=== PATIENT | female | born 1990 | race Caucasian/White ===

== ENCOUNTER 2023-05-31 16:54 | Outpatient (CLI) | payer MEDICAID, SELFPAY | END 2023-05-31 16:55 | disposition home or self-care (01) | PROVIDERS: Visit Provider Physician Assistant | DX: O09.292 Supervision of pregnancy with other poor reproductive or obstetric history, second trimester (principal) | CPT/HCPCS: 82565; 82570; 84156; 84450; 84460; 84520 ==

== ENCOUNTER 2023-06-06 19:28 | Outpatient (CLI) | payer MEDICAID, SELFPAY | END 2023-06-06 19:29 | disposition home or self-care (01) | LOC: NFLDREF 06-27 15:01 | PROVIDERS: Visit Provider Physician Assistant | DX: O09.32 Supervision of pregnancy with insufficient antenatal care, second trimester (principal) | CPT/HCPCS: 82570; 84156 ==

== ENCOUNTER 2023-06-16 05:20 | Outpatient (CLI) | payer OTHER, SELFPAY ==
--- NOTE | 2023-06-16 06:07 | US_ITS ---
Patient: GEORGE HOLCOMB Facility:?[facility] Patient ID:?[id number] Site Patient ID:?[id number]. Site :?[id number] Study:?US-OB Pelvis BPP-06/16/2023 7:08:02 AM Ordering Physician:?MARTINA SHEN Final Report: Indication: Cramping Technique: Limited sonography was performed as a biophysical profile examination. The study is limited to only that which is discussed below. Comparison: None Findings: The cervix is visualized and measures 3.8 centimeters. position is breech The single deepest pocket is 7.5 centimeter The placenta is anterior. heart rate is 131 beats per minute. The biophysical profile score is 8/8 Impression: The biophysical profile score is 8/8. Current position is breech. Other information as discussed above. Dictated by Kyle Sarabia MD @ 06/16/2023 7:14:35 AM Signed by:?Kyle Sarabia MD @06/16/2023 7:14:35 AM (Electronic Signature)
[2023-06-16 06:29] VITALS: PULSE 99; O2SAT 96
[2023-06-16 06:29] LABS: Appearance Urine Clear (Clear); Bilirubin Urine Negative (Negative); Blood Urine Negative (Negative); Color Urine Yellow (Yellow); Glucose Urine Negative (Negative); Ketones Urine Negative (Negative); Leukocyte Esterase Urine Negative (Negative); Nitrite Urine Negative (Negative); Protein Urine Negative (Negative); Specific Gravity Urine 1.015 (1.000-1.030); Urobilinogen Urine 0.2 (0.2-1.0); pH Urine 7.5 (5.0-8.5)
[2023-06-16 06:30] VITALS: BP 112/65; PULSE 98; RESP 18; TEMP 37.2
[2023-06-16 06:52] LABS: Clue Cells <20% Clue Cells Seen (None Seen); Trichomonas No Trichomonas Seen (None Seen); Yeast No Yeast Seen (None Seen)
[2023-06-16 07:39] VITALS: BP 110/70; PULSE 101; PULSE 89; RESP 16; TEMP 37.1; O2SAT 97
[2023-06-16 07:55] LABS: Chlamydia DNA Amplified* NOT DETECTED (No Detected); GC DNA Amplified* NOT DETECTED (No Detected)
--- NOTE | 2023-06-16 08:05 | W.PM.OBO ---
OB Outpatient HPI History of Present Illness Time Seen by Provider: 07:15 Date Seen: 06/16/23 History of Present Illness: 33 year old at 25 1/7 weeks gestation by LMP, PIOTR 09/28/23 , presents with pelvic cramping, questionable vaginal or rectal bleeding and passage of tissue after bowel movements. Patient states that she had been doing well until last night, she had some constipation and was able to have a bowel movement, followed by 2 other looser stools. After the third bowel movement she also noted blood and some tissue in the toilet. After this she remained with menstrual like cramps. After her last bowel movement which was around 0330 she has not had any new bleeding. No dysuria, urgency or frequency. No fever, no chills, no one else sick at home. Baby moving naturally: Yes Bleeding: Yes Contractions: No Leaking fluid: No Discharge: Yes Heartburn: No Back pain: No Meds Home Medications and Allergies Home Medications Medication Instructions Recorded Confirmed Type aspirin 81 mg chewable tablet 81 mg PO QDAY 05/31/23 06/16/23 History bupropion HCl 150 mg 24 hr tablet, 150 mg PO QAM 05/31/23 06/16/23 History extended release docosahexaenoic acid 200 mg 200 mg PO DAILY 05/31/23 06/16/23 History capsule ( DHA) venlafaxine 37.5 mg 37.5 mg PO QDAY 05/31/23 06/16/23 History capsule,extended release 24 hr Allergies Allergy/AdvReac Type Severity Reaction Status Date / Time No Known Drug Allergies Allergy Verified 06/16/23 06:32 [facility] Medical History (Updated 06/16/23 @ 08:16 by Adriana Mason MD) History of asthma ?Z87.09 - Personal history of other diseases of the respiratory system (ICD-10) Surgical History (Updated 05/31/23 @ 13:53 by Tasha Garcia PA-C) History of section, low transverse ?Z98.891 - History of uterine scar from previous surgery (ICD-10) History of cholecystectomy ?Z90.49 - Acquired absence of other specified parts of digestive tract (ICD-10) History of classical section ?Z98.891 - History of uterine scar from previous surgery (ICD-10) Family History (Updated 05/31/23 @ 13:54 by Tasha Garcia PA-C) Father Coronary artery disease Diabetes Social History (Updated 06/02/23 @ 11:03 by Tasha Garcia PA-C) Narrative: SOCIAL HISTORY: 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 Marital status: . Anglican/cultural needs: no. Chemical or radiation exposure: no. Pre- tobacco use: no. Pre- alcohol use: 1-3 per week. Current tobacco use: no. Current alcohol use: no. Recreational drug use: no. Dietary restrictions: no. Blood transfusion acceptable in an emergency: yes. PSYCHOSOCIAL HISTORY: History of depression or currently depressed: yes. Current or past physical, emotional, or sexual mistreatment: no. Problems that will make it hard to make it to appointments: no. What is your current living situation?: I presently have a place to live Problems where you live: no known problems In the past 12 months, utilities in danger of being shut off: no In past 12 months, lack of transportation kept you from medical appts, meetings, work, or getting things needed for daily living: no In the past 12 mos, have been you worried that your food would run out before you had money to buy more?: never true In the past 12 mos, the food you bought just didn't last and you didn't have money to buy more?: never true Smoking Status: Former smoker How often does anyone, including family, friends and others, physically hurt you: never How often does anyone, including family, friends and others, insult or talk down to you: never How often does anyone, including family, friends and others, threaten you with harm: never How often does anyone, including family, friends and others, scream or curse at you: never Little interest or pleasure in doing things: more than half the days Feeling down, depressed, or hopeless: several days History History 3 Elective abortions 0 Para 2 Spontaneous abortions 0 Hx # Term Pregnancies 1 Ectopic pregnancies 0 Hx # Pregnancies 1 Multiple births 0 Number of Living Children 2 Past Pregnancies Del. Date GA/Weeks Outcome Route wt Inf Gender Labor Lgth Anesthesia Location Provider Compli 08/22/15 30 live - low transverse 992.233 g Female spinal [facility] preeclampsia other 02/09/17 37 live - full term low transverse 3.147 kg Female spinal [place] [facility] - H&P: Exam Physical Exam Vital signs: Temp Pulse Resp BP Pulse Ox 98.9 F 89 18 110/70 97 06/16/23 06:30 06/16/23 07:39 06/16/23 06:30 06/16/23 07:39 06/16/23 07:39 Narrative: NST: Tocometer placed at uterine fundus, no uterine contractions, no uterine contractions palpated. Otherwise appropriate for gestational age. BPP: 8/8, cervix closed and measured 3.8cm. Sterile speculum exam: Cervix looks thick and closed, no gross lesions or abnormal discharge, no pooling, no Valsalva. No evidence of tissue like material vaginally, no evidence of old blood. Rectal exam: evidence of internal hemorrhoids, no evidence of blood or tissue in glove. Wet prep: less than 20% of clue cells. UA negative for infection. Labs Labs Laboratory Tests 06/16/23 Range/Units 05:56 Urine Color Yellow (Yellow) Urine Appearance Clear (Clear) Urine pH 7.5 (5.0-8.5) Ur Specific [place] 1.015 (1.000-1.030) Urine Protein Negative (Negative) Urine Glucose (UA) Negative (Negative) Urine Ketones Negative (Negative) Urine Blood Negative (Negative) Urine Nitrite Negative (Negative) Urine Bilirubin Negative (Negative) Urine Urobilinogen 0.2 (0.2-1.0) Ur Leukocyte Esterase Negative (Negative) Vaginal Trichomonas No Trichomonas Seen (None Seen) Vaginal Yeast No Yeast Seen (None Seen) Vaginal Clue Cells <20% Clue Cells Seen A (None Seen) C.trachomatis Ampl DNA NOT DETECTED (No Detected) N.gonorrhoeae Ampl DNA NOT DETECTED (No Detected) Assessment and Plan Assessment and plan (1) Bacterial vaginosis: Status: Acute (2) Internal hemorrhoids: Status: Acute Plan No evidence of labor, abruption at this moment. Due to clinical history, physical exam findings bleeding and tissue like discharge most likely from internal hemorrhoids and bowel movements. Wet prep showing clue cells and due to symptomatology I would treat with course of antibiotic. This is ordered today. Patient encouraged to contact clinic again if anything significantly changes, even if she was evaluated today. Patient and in agreement with plan.
--- NOTE | 2023-06-16 08:13 | PC.OBNST ---
NST Note NST Note Start: 06/16/23 05:40 Freq: ONCE Status: Active Protocol: Document 06/16/23 07:55 [facility] (Rec: 06/16/23 08:12 [facility] [id number]) NST Note 3 Para (# of births) 2 EDC 09/28/23 Gestational Age In Weeks & Days 25 Weeks & 1 Days High Risk Factors History of Labor/ Delivery Patient Presented with Complaint(s) of Contractions/cramping,Other Other Complaints Pt had loose stools x3 during the night and passed some bloody tissue in the toilet with the last stool. She was experiencing mild cramping which she verbalized felt like period cramps. Reactive No Appropriate for Gestational Age Yes GONZALES Banks, GONZALES Date 06/16/23 Reactive No Appropriate for Gestational Age Yes GONZALES De Leon RN Date 06/16/23 OB NST charge Yes Complete NST Note via Write Note Yes The provider's electronic signature indicates the NST is reactive/appropriate for gestational age. *Note to provider: If an addendum is required, open the patient's chart and click on the note under the Nurse/Allied Health tab.
== END 2023-06-16 07:58 | disposition home or self-care (01) ==
LOC: OB OUT 05:21 → OB 05:21
PROVIDERS: Visit Provider Obstetrics & Gynecology
DX: O47.02 False labor before 37 completed weeks of gestation, second trimester (principal); Z3A.25 25 weeks gestation of pregnancy
CPT/HCPCS: 59025; 76819; 81003; 87210; 87491; 87591; G0463

== ENCOUNTER 2023-07-14 14:28 | Outpatient (CLI) | payer OTHER, SELFPAY | END 2023-07-14 14:29 | disposition home or self-care (01) | LOC: NFLDREF 08-01 09:01 | PROVIDERS: Visit Provider Obstetrics & Gynecology | DX: O09.299 Supervision of pregnancy with other poor reproductive or obstetric history, unspecified trimester (principal) | CPT/HCPCS: 82565; 82570; 84156; 84450; 84460; 84520; 84550; 86592; 87491; 87591 ==

== ENCOUNTER 2023-07-25 11:43 | Emergency (ER) | payer OTHER, SELFPAY ==
[2023-07-25] VITALS (8 sets, daily range): BP systolic 116–128; BP diastolic 76–81; PULSE 99–114; RESP 18; TEMP 36.9; O2SAT 96–100; BMI 42.4
[2023-07-25 12:41] LABS: Lactate* 1.3 mmol/L (0.5-1.9)
[2023-07-25 12:48] LABS: Basophils Absolute Auto 0.02 K/uL (0.00-0.30); Basophils Percent Auto 0.2 % (0.0-3.0); Eosinophils Absolute Auto 0.12 K/uL (0.00-0.50); Eosinophils Percent Auto 1.3 % (0.0-7.0); Hemoglobin* 11.7 gm/dL (12.0-16.0); Immature Granulocytes Pct Auto 1.1 %; Lymphocytes Percent Auto 16.6 % (20-44); Mean Corpuscular HGB Conc 33 gm/dL (32-36); Mean Corpuscular Hemoglobin 31 pg (26-34); Mean Corpuscular Volume 92 fL (80-100); Monocytes Percent Auto 7.9 % (0.0-11.0); Neutrophils Percent Auto 72.9 % (42.0-72.0); Platelet Count* 274 K/uL (140-440); RDW Coefficient of Variation % 12.9 % (11.5-15.5); Red Blood Count 3.82 m/uL (4.00-5.20); White Blood Count* 8.98 K/uL (4.50-11.00)
[2023-07-25] MEDS: 0.9 % SODIUM CHLORIDE 1000 ml 1,000 ML IV (12:50)
[2023-07-25 12:52] LABS: Slide Review Reflex No
[2023-07-25 13:02] LABS: Chloride* 107 mmol/L (96-114); Potassium* 3.8 mmol/L (3.6-5.1); Sodium* 133 mmol/L (135-149)
[2023-07-25 13:03] LABS: Albumin* 3.6 g/dL (3.3-5.0)
[2023-07-25 13:05] LABS: Anion Gap 6 mEq/L (7-15); Blood Urea Nitrogen* 11 mg/dL (5-24); Carbon Dioxide* 20 mmol/L (20-32); Creatinine* 0.4 mg/dL (0.5-1.5); Est. Creatinine Clearance* 174.36; Estimated Glomerular Filt Rate 135 ml/min
[2023-07-25 13:06] LABS: Alanine Aminotransferase* 21 U/L (4-35); Alkaline Phosphatase* 81 U/L (40-150); Aspartate Amino Transferase* 24 U/L (12-35); Bilirubin Direct* 0.4 mg/dL (0.0-0.5); Bilirubin Total* 0.6 mg/dL (0.1-1.5); Calcium* 8.7 mg/dL (8.4-10.6); Glucose* 102 mg/dL (60-115); Total Protein* 6.6 g/dL (6.0-8.3)
[2023-07-25 13:18] LABS: Troponin I* < 0.01 ng/mL (0.01-0.04)
--- NOTE | 2023-07-25 13:47 | ED_ITS ---
HPI - General Adult General Chief complaint: Dizziness/Vertigo Stated complaint: 30 weeks --dizziness, elevated heartrate Time Seen by Provider: 07/25/23 12:22 Source: patient Mode of arrival: ambulatory Limitations: no limitations History of Present Illness HPI narrative: 33-year-old female at 30 weeks gestation presents today with not feeling well. She states that her last couple days she has had episodes of feeling very hot. She states that she feels extremely hot for about an hour and can not seem to cool down. She then feels lightheaded when this occurs. Sometimes she feels a slight pressure in her chest and shortness of breath while this is occurring. She has also been getting alerts on her phone that her pulse is too fast. After the episode resolved, she feels better and goes back to normal. She does state that she does become diaphoretic during these episodes, sweating for about half an hour while the episode lasts for about 1 hour. She denies any abdominal pain or cramping. No vaginal discharge. No fevers or chills. No vomiting. No recent diarrhea or sick contacts that she is aware of. When patient is not in the middle of this episode of feeling overheated, she does not have chest pain or shortness of breath. Past medical history is significant for history of HELLP syndrome with her 1st , delivery at 30 weeks with severe IUGR, via . Past medical history also significant for depression, anxiety, ADD, obesity. Related Data Home Medications ?Medication ?Instructions ?Recorded ?Confirmed aspirin 81 mg chewable tablet 81 mg PO QDAY 05/31/23 07/25/23 bupropion HCl 150 mg 24 hr tablet, 150 mg PO QAM 05/31/23 07/25/23 extended release docosahexaenoic acid 200 mg 200 mg PO DAILY 05/31/23 07/25/23 capsule ( DHA) venlafaxine 37.5 mg 37.5 mg PO QDAY 05/31/23 07/25/23 capsule,extended release 24 hr Allergies Allergy/AdvReac Type Severity Reaction Status Date / Time No Known Drug Allergies Allergy Verified 07/25/23 11:59 Review of Systems Status of ROS: Reports: 10 or more systems reviewed and unremarkable except as noted in History and below [facility] Medical History History of asthma ?Z87.09 - Personal history of other diseases of the respiratory system (ICD- 10) Surgical History History of section, low transverse ?Z98.891 - History of uterine scar from previous surgery (ICD-10) History of cholecystectomy ?Z90.49 - Acquired absence of other specified parts of digestive tract (ICD- 10) History of classical section ?Z98.891 - History of uterine scar from previous surgery (ICD-10) Family History Father Coronary artery disease Diabetes Social History Narrative: SOCIAL HISTORY: 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 Marital status: . Moravian/cultural needs: no. Chemical or radiation exposure: no. Pre- tobacco use: no. Pre- alcohol use: 1-3 per week. Current tobacco use: no. Current alcohol use: no. Recreational drug use: no. Dietary restrictions: no. Blood transfusion acceptable in an emergency: yes. PSYCHOSOCIAL HISTORY: History of depression or currently depressed: yes. Current or past physical, emotional, or sexual mistreatment: no. Problems that will make it hard to make it to appointments: no. What is your current living situation?: I presently have a place to live Problems where you live: no known problems In the past 12 months, utilities in danger of being shut off: no In past 12 months, lack of transportation kept you from medical appts, meetings, work, or getting things needed for daily living: no In the past 12 mos, have been you worried that your food would run out before you had money to buy more?: never true In the past 12 mos, the food you bought just didn't last and you didn't have money to buy more?: never true Smoking Status: Former smoker Do you use any of these nicotine containing products: None How often do you have a drink containing alcohol: never AUDIT-C Alcohol total score: 0 Non-prescribed substance use: denies use How often does anyone, including family, friends and others, physically hurt you : never How often does anyone, including family, friends and others, insult or talk down to you: never How often does anyone, including family, friends and others, threaten you with harm: never How often does anyone, including family, friends and others, scream or curse at you: never Little interest or pleasure in doing things: more than half the days Feeling down, depressed, or hopeless: more than half the days Exam Narrative: Exam Narrative: Overweight, well-developed patient in no acute distress. Alert and oriented. Answers questions appropriately. Mood and affect are appropriate. Thoughts are goal oriented and rational. No tangential or magical thinking noted. Patient speaks in full sentences without needing to catch her breath. HEENT: Normocephalic atraumatic. Pupils are equally round reactive to light. Extraocular muscles are intact. Conjunctivae are moist without any icterus noted. Moist mucous membranes. Neck is soft. Cardiovascular: Heart is regular rate and rhythm S1 and S2 are present without any murmurs. Lungs: Clear to auscultation bilaterally no wheezes rhonchi or rales are appreciated. Patient takes deep breaths without any discomfort. Abdomen: Gravid, nontender with normal bowel sounds. Extremities: Bilateral lower extremities are without pitting edema. Normal DP and PT pulses. Skin: Well perfused without any obvious rashes. Const: Vital Signs, click to edit/add: Vital Signs - 24 hr 07/25/23 11:51 07/25/23 13:34 07/25/23 13:42 Temperature 98.5 F Pulse Rate 99 106 H Pulse Rate [Pulse Oximeter] 114 H Respiratory Rate 18 Blood Pressure 122/79 Blood Pressure [Ri ght Upper Arm] 116/78 Pulse Oximetry 96 98 99 Oxygen Delivery Me thod Room Air Course Course ED Course: OB nurse did come down to evaluate the patient. IV was established patient received a L of normal saline. EKG, read by me, shows sinus tachycardia with a pulse of 116. T-wave inversions in V1, V2 and V3. CBC was unremarkable. Chemistry shows slightly low sodium otherwise unremarkable. Normal LFTs. Normal troponin. TSH pending. UA did show evidence of mild dehydration. Repeat pulse 99, then 106. Did look through patient's previous vital signs she did have a pulse of 117 06/27 and 104 on 07/13. Did speak to NUNO Sanchez on-call, who recommends a heart monitor. Patient will be discharged from the ER and sent over to the clinic where they have 1 waiting for her. Vital Signs Vital signs: Initial Vital Signs Temperature 98.5 F 07/25/23 11:51 Temperature Source Temporal Artery Scan 07/25/23 11:51 Pulse Rate 114 H 07/25/23 11:51 Respiratory Rate 18 07/25/23 11:51 Blood Pressure 116/78 07/25/23 11:51 Blood Pressure Mean 90 07/25/23 11:51 Blood Pressure Position Sitting 07/25/23 11:51 Pulse Oximetry 96 07/25/23 11:51 Oxygen Delivery Method Room Air 07/25/23 11:51 Vital Signs Temperature 98.5 F 07/25/23 11:51 Pulse Rate 114 H 07/25/23 11:51 Respiratory Rate 18 07/25/23 11:51 Blood Pressure 116/78 07/25/23 11:51 Pulse Oximetry 96 07/25/23 11:51 Oxygen Delivery Method Room Air 07/25/23 11:51 Temperature 98.5 F 07/25/23 11:51 Pulse Rate 106 H 07/25/23 13:42 Respiratory Rate 18 07/25/23 11:51 Blood Pressure 122/79 07/25/23 13:42 Pulse Oximetry 99 07/25/23 13:42 Oxygen Delivery Method Room Air 07/25/23 11:51 Medications Administered Medications: Discontinued Medications Generic Name Dose Route Start Last Admin Trade Name Freq PRN Reason Stop Dose Admin Sodium Chloride 1,000 mls @ 1,000 mls/hr 07/25/23 12:30 07/25/23 12:50 0.9 % Sodium Chloride 1000 Ml IV 07/25/23 13:29 1,000 mls/hr .Q1H ÁNGELA Administration Medical Decision Making MDM Narrative Medical decision making narrative: 33-year-old female with persistent tachycardia, episodes of feeling hot. TSH pending at this time. Patient will be sent over to the staff counsel clinic for a heart monitor. Lab Data Lab results reviewed: Yes I reviewed the patient's lab results Labs: Lab Results 07/25/23 07/25/23 Range/Units 12:33 13:30 WBC 8.98 (4.50-11.00) K/uL RBC 3.82 L (4.00-5.20) m/uL Hgb 11.7 L (12.0-16.0) gm/dL Hct 35.0 (33.0-51.0) % MCV 92 (80-100) fL MCH 31 (26-34) pg MCHC 33 (32-36) gm/dL RDW Coeff of Cinthya 12.9 (11.5-15.5) % Plt Count 274 (140-440) K/uL Neut % (Auto) 72.9 H (42.0-72.0) % Lymph % (Auto) 16.6 L (20-44) % [place] % (Auto) 7.9 (0.0-11.0) % Eos % (Auto) 1.3 (0.0-7.0) % Baso % (Auto) 0.2 (0.0-3.0) % Neut # (Auto) 6.50 (1.7-7.0) K/uL Lymph # (Auto) 1.50 (0.90-2.90) K/uL [place] # (Auto) 0.70 (0.00-0.90) K/UL Eos # (Auto) 0.12 (0.00-0.50) K/uL Baso # (Auto) 0.02 (0.00-0.30) K/uL Abs Immat Gran (auto) 0.10 (0.00-0.30) K/uL Imm/Tot Granulo (auto) 1.1 % Sodium 133 L (135-149) mmol/L Potassium 3.8 (3.6-5.1) mmol/L Chloride 107 (96-114) mmol/L Carbon Dioxide 20 (20-32) mmol/L Anion Gap 6 L (7-15) mEq/L BUN 11 (5-24) mg/dL Creatinine 0.4 L (0.5-1.5) mg/dL Estimated Creat Clear 174.36 Estimated GFR 135 ml/min Glucose 102 (60-115) mg/dL Lactate 1.3 (0.5-1.9) mmol/L Calcium 8.7 (8.4-10.6) mg/dL Total Bilirubin 0.6 (0.1-1.5) mg/dL Direct Bilirubin 0.4 (0.0-0.5) mg/dL AST 24 (12-35) U/L ALT 21 (4-35) U/L Alkaline Phosphatase 81 (40-150) U/L Troponin I < 0.01 L (0.01-0.04) ng/mL Total Protein 6.6 (6.0-8.3) g/dL Albumin 3.6 (3.3-5.0) g/dL Urine Color Dark yellow (Yellow) Urine Appearance Slightly Cloudy A (Clear) Urine pH 6.5 (5.0-8.5) Ur Specific [place] >= 1.030 (1.000-1.030) Urine Protein Negative (Negative) Urine Glucose (UA) Negative (Negative) Urine Ketones 1+ A (Negative) Urine Blood Negative (Negative) Urine Nitrite Negative (Negative) Urine Bilirubin Negative (Negative) Urine Urobilinogen 0.2 (0.2-1.0) Ur Leukocyte Esterase Negative (Negative) Urine RBC 0-2 (0-2) Urine WBC 2-5 (0-5) Ur Squamous Epith Cells Few (None-Few) Urine Bacteria Moderate A (None) POC Troponin I 0.00 L (0.01-0.04) ng/ml ECG Data Attestation: I personally reviewed and interpreted this ECG as follows: Discharge Plan Discharge Clinical Impression: Tachycardia, Dizziness Patient Disposition: Home, Self-Care Condition: Stable Additional Instructions: Increase daily fluid intake. You do need to go over to the staff counsel clinic to have your heart monitor placed, they are waiting for you at this time. Prescriptions: No Action bupropion HCl 150 mg tablet extended release 24 hr 150 mg PO QAM Hold Instructions: pt believes is on hold venlafaxine 37.5 mg capsule,extended release 24hr 37.5 mg PO QDAY aspirin 81 mg tablet,chewable 81 mg PO QDAY DHA 200 mg capsule 200 mg PO DAILY Follow Up/Referrals: Provider,Not a Local [Primary Care Provider] - Stand Alone Forms: MyHealth Info Instructions
[2023-07-25 13:55] LABS: Appearance Urine Slightly Cloudy (Clear); Bilirubin Urine Negative (Negative); Blood Urine Negative (Negative); Color Urine Dark yellow (Yellow); Glucose Urine Negative (Negative); Ketones Urine 1+ (Negative); Leukocyte Esterase Urine Negative (Negative); Nitrite Urine Negative (Negative); Protein Urine Negative (Negative); Specific Gravity Urine >= 1.030 (1.000-1.030); Urobilinogen Urine 0.2 (0.2-1.0); pH Urine 6.5 (5.0-8.5)
[2023-07-25 14:06] LABS: RBC Urine 0-2 (0-2)
[2023-07-25 14:07] LABS: Bacteria Urine Moderate; Squamous Epithelial Cell Urine Few (None-Few)
== END 2023-07-25 14:37 | disposition home or self-care (01) ==
PROVIDERS: Emergency Provider Family Medicine
DX: R42 Dizziness and giddiness (principal); Z3A.30 30 weeks gestation of pregnancy
CPT/HCPCS: 36415; 80048; 80076; 81001; 83605; 84443; 84484; 85025; 87086; 93005; 94761; 99284; J7030

== ENCOUNTER 2023-08-04 07:17 | Outpatient (CLI) | payer OTHER, SELFPAY ==
--- NOTE | 2023-08-04 07:15 | CRLHL7_ITS ---
For Patients: As a result of the Century Cures Act, medical imaging exams and procedure reports are released immediately into your electronic medical record. You may view this report before your referring provider. If you have questions, please contact your health care provider. INDICATION: Uterine scar TECHNIQUE: Real time hauser scale imaging of the fetus was performed. COMPARISON: 06/16/2023 FINDINGS: Sonographic imaging demonstrates a single living intrauterine gestation. Fetus demonstrates a regular cardiac rate of 130 beats per minute. Fetus has a breech position. The placenta lies anteriorly. Amniotic fluid volume appears normal and there is a single deepest pocket of 7.6 cm. The estimated weight is 2650gm which lies at the greater than 97 %. BPD, HC, AC greater than 97th percentile. [place] 39th percentile. The fetus was active and demonstrated normal breathing movements. There was normal flexion and extension of the trunk and extremities. IMPRESSION: Normal biophysical profile score 8/8. Sonographic gestational age 35 weeks 3 days and sonographic due date of 09/05/2023. Sonographic ages 23 days ahead of the clinical age. Estimated weight greater than 97th percentile. BPD/HC/AC greater than 97th percentile. Dictated by Danny Nguyen MD @ 08/05/2023 6:17:59 AM (Electronically Signed)
== END 2023-08-04 07:18 | disposition home or self-care (01) ==
LOC: US 07:18
PROVIDERS: Visit Provider Obstetrics & Gynecology
DX: O09.293 Supervision of pregnancy with other poor reproductive or obstetric history, third trimester (principal); Z98.891 History of uterine scar from previous surgery; Z87.51 Personal history of pre-term labor; Z3A.35 35 weeks gestation of pregnancy
CPT/HCPCS: 76816; 76819

== ENCOUNTER 2023-08-07 13:02 | Outpatient (CLI) | payer OTHER, SELFPAY ==
[2023-08-07] VITALS (12 sets, daily range): BP systolic 115–128; BP diastolic 71–76; PULSE 97–120; RESP 18; TEMP 37; O2SAT 95–98
[2023-08-07 14:01] LABS: Hematocrit 34.3 % (33.0-51.0); Hemoglobin* 11.4 gm/dL (12.0-16.0); Mean Corpuscular HGB Conc 33 gm/dL (32-36); Mean Corpuscular Hemoglobin 31 pg (26-34); Mean Corpuscular Volume 92 fL (80-100); Platelet Count* 235 K/uL (140-440); Red Blood Count 3.73 m/uL (4.00-5.20)
[2023-08-07 14:04] LABS: Creatinine Urine 117.4 mg/dL; Protein Creatinine Ratio Urine 0.04 (0-0.19); Total Protein Urine 5 mg/dL
[2023-08-07 14:05] LABS: Slide Review Reflex No
[2023-08-07 14:16] LABS: Creatinine* 0.4 mg/dL (0.5-1.5); Estimated Glomerular Filt Rate 135 ml/min
[2023-08-07 14:17] LABS: Alanine Aminotransferase* 24 U/L (4-35); Aspartate Amino Transferase* 31 U/L (12-35); Blood Urea Nitrogen* 9 mg/dL (5-24)
--- NOTE | 2023-08-07 14:45 | PC.OBNST ---
NST Note NST Note Start: 08/07/23 13:17 Freq: ONCE Status: Active Protocol: Document 08/07/23 14:43 JOSEPH (Rec: 08/07/23 14:45 JOSEPH [id number]) NST Note 3 Para (# of births) 2 EDC 09/28/23 Gestational Age In Weeks & Days 32 Weeks & 4 Days Patient Presented with Complaint(s) of Headache,Other Other Complaints visual changes Reactive Yes Appropriate for Gestational Age Yes GONZALES Quintanilla RNC Date 08/07/23 Reactive Yes Appropriate for Gestational Age Yes GONZALES Flood RN Date 08/07/23 OB NST charge Yes Complete NST Note via Write Note Yes The provider's electronic signature indicates the NST is reactive/appropriate for gestational age. *Note to provider: If an addendum is required, open the patient's chart and click on the note under the Nurse/Allied Health tab.
--- NOTE | 2023-08-12 15:00 | PC.OBNST ---
NST Note NST Note Start: 08/07/23 13:17 Freq: ONCE Status: Discharge Protocol: Document 08/07/23 14:43 JOSEPH (Rec: 08/07/23 14:45 JOSEPH [id number]) NST Note 3 Para (# of births) 2 EDC 09/28/23 Gestational Age In Weeks & Days 32 Weeks & 4 Days Patient Presented with Complaint(s) of Headache,Other Other Complaints visual changes Reactive Yes Appropriate for Gestational Age Yes GONZALES Quintanilla RNC Date 08/07/23 Reactive Yes Appropriate for Gestational Age Yes GONZALES Flood RN Date 08/07/23 OB NST charge Yes Complete NST Note via Write Note Yes The provider's electronic signature indicates the NST is reactive/appropriate for gestational age. *Note to provider: If an addendum is required, open the patient's chart and click on the note under the Nurse/Allied Health tab.
== END 2023-08-07 14:48 | disposition home or self-care (01) ==
LOC: OB OUT 13:03 → OB 13:04
PROVIDERS: Visit Provider Obstetrics & Gynecology
DX: O26.893 Other specified pregnancy related conditions, third trimester (principal); R51.9 Headache, unspecified; H53.9 Unspecified visual disturbance; Z3A.32 32 weeks gestation of pregnancy
CPT/HCPCS: 36415; 59025; 82565; 82570; 84156; 84450; 84460; 84520; 85027; G0463

== ENCOUNTER 2023-08-15 08:26 | Outpatient (CLI) | payer OTHER, SELFPAY ==
[2023-08-15 08:32] VITALS: PULSE 106; O2SAT 95
[2023-08-15 08:37] VITALS: PULSE 107; O2SAT 97
[2023-08-15 08:42] VITALS: PULSE 102; O2SAT 97
[2023-08-15 08:45] VITALS: RESP 18; TEMP 36.6
[2023-08-15 08:46] VITALS: BP 122/77; PULSE 101
[2023-08-15 09:18] LABS: Appearance Urine Slightly Cloudy (Clear); Bilirubin Urine Negative (Negative); Blood Urine Negative (Negative); Color Urine Yellow (Yellow); Glucose Urine Negative (Negative); Ketones Urine Negative (Negative); Leukocyte Esterase Urine Negative (Negative); Nitrite Urine Negative (Negative); Protein Urine Negative (Negative); Specific Gravity Urine 1.015 (1.000-1.030)
[2023-08-15 09:30] LABS: Bacteria Urine Moderate; RBC Urine 0-2 (0-2); Squamous Epithelial Cell Urine Few (None-Few)
--- NOTE | 2023-08-15 10:47 | PC.OBNST ---
NST Note NST Note Start: 08/15/23 08:36 Freq: ONCE Status: Active Protocol: Document 08/15/23 10:44 [facility]MB (Rec: 08/15/23 10:46 MMB [id number]) NST Note 3 Para (# of births) 2 EDC 09/29/23 Gestational Age In Weeks & Days 33 Weeks & 4 Days Patient Presented with Complaint(s) of Vaginal bleeding,Decreased movement Reactive Yes Appropriate for Gestational Age Yes GONZALES Leonard RN Date 08/15/23 Reactive Yes Appropriate for Gestational Age Yes GONZALES De Leon RN Date 08/15/23 OB NST charge Yes Complete NST Note via Write Note Yes The provider's electronic signature indicates the NST is reactive/appropriate for gestational age. *Note to provider: If an addendum is required, open the patient's chart and click on the note under the Nurse/Allied Health tab.
== END 2023-08-15 10:00 | disposition home or self-care (01) ==
LOC: OB OUT 08:26 → OB 08:27
PROVIDERS: Visit Provider Obstetrics & Gynecology
DX: O46.93 Antepartum hemorrhage, unspecified, third trimester (principal); O36.8130 Decreased fetal movements, third trimester, not applicable or unspecified; Z3A.33 33 weeks gestation of pregnancy
CPT/HCPCS: 59025; 81001; 81003; 87086; G0463

== ENCOUNTER 2023-08-16 08:13 | Outpatient (CLI) | payer OTHER, SELFPAY ==
[2023-08-16 08:29] VITALS: BP 112/81; PULSE 112; RESP 16; TEMP 36.8
[2023-08-16 09:14] LABS: Clue Cells >20% Clue Cells Seen (None Seen); Trichomonas No Trichomonas Seen (None Seen); Yeast No Yeast Seen (None Seen)
--- NOTE | 2023-08-16 09:42 | P.OBLDTN_ITS ---
OB - Triage/Final Diagnosis Visit Information Time Seen by Provider: 08:45 Date Seen: 08/16/23 Date of evaluation: 08/16/23 Narrative: The patient is a 33 year old 3 para 1102 at 33 6/7 weeks gestation by LMP, who presents with vaginal bleeding. She had been evaluated in triage yesterday for similar complaint. When she woke up yesterday and went to the bathroom, she noticed some bright red blood on the toilet tissue with wiping. She was seen in the Center triage, NST was reactive and reassuring, urinalysis was obtained, and the patient was sent home as she had no further bleeding. Twice after that yesterday, she had just a little bit of pink tinge to her discharge with wiping. She also had some pelvic pressure for a couple of hours yesterday. This morning, when she awoke and went to the bathroom, she again noticed some bright red bleeding on the toilet tissue. It happened again when she went to the bathroom just after arriving in triage. She has also noticed a little bit more discharge residue on her underwear the last couple of days, described as white to green. She denies leakage of fluid. She has had no dysuria or urinary urgency. Urine culture is still pending from yesterday. Fetus is active. Evaluation Cervical dilation (cm): 0 Laboratory results: Laboratory Tests 08/16/23 Range/Units Unknown Vaginal Trichomonas No Trichomonas Seen (None Seen) Vaginal Yeast No Yeast Seen (None Seen) Vaginal Clue Cells >20% Clue Cells Seen A (None Seen) Vital signs: Vital Signs - 24 hr 08/16/23 08:29 08/16/23 08:29 Temperature 98.3 F Pulse Rate 112 H Respiratory Rate 16 Blood Pressure 112/81 Fetus (Single) Heart Rate Baseline: 135 Jail Variability: Moderate (6-25) Monitor Accelerations: Present Monitor Decelerations: None Station: -4 Final Diagnosis (1) Bacterial vaginosis in : Status: Acute Problem details: Will treat with metronidazole.
--- NOTE | 2023-08-16 09:42 | PC.OBNST ---
NST Note NST Note Start: 08/16/23 08:15 Freq: ONCE Status: Active Protocol: Document 08/16/23 09:40 MICHELLE (Rec: 08/16/23 09:42 MICHELLE [id number]) NST Note 3 Para (# of births) 2 EDC 09/28/23 Gestational Age In Weeks & Days 33 Weeks & 6 Days Patient Presented with Complaint(s) of Vaginal bleeding Reactive Yes Appropriate for Gestational Age Yes RN Laurie Barr RN Date 08/16/23 Reactive Yes Appropriate for Gestational Age Yes GONZALES De Leon RNC Date 08/16/23 OB NST charge Yes Complete NST Note via Write Note Yes The provider's electronic signature indicates the NST is reactive/appropriate for gestational age. *Note to provider: If an addendum is required, open the patient's chart and click on the note under the Nurse/Allied Health tab.
== END 2023-08-16 09:58 | disposition home or self-care (01) ==
LOC: OB OUT 08:13 → OB 08:14
PROVIDERS: Visit Provider Obstetrics & Gynecology
DX: O46.93 Antepartum hemorrhage, unspecified, third trimester (principal); Z3A.33 33 weeks gestation of pregnancy
CPT/HCPCS: 59025; 87210; G0463

== ENCOUNTER 2023-08-18 13:45 | Outpatient (CLI) | payer OTHER, SELFPAY ==
--- NOTE | 2023-08-18 14:00 | CRLHL7_ITS ---
For Patients: As a result of the Century Cures Act, medical imaging exams and procedure reports are released immediately into your electronic medical record. You may view this report before your referring provider. If you have questions, please contact your health care provider. INDICATION: hx of uterine scar from previous surgery, PTB COMPARISON: 08/04/2023 TECHNIQUE: Real time hauser scale imaging of the fetus was performed. Without non-stress testing. FINDINGS: Sonographic imaging demonstrates a single living intrauterine gestation. Fetus demonstrates a regular cardiac rate of 138 beats per minute. Fetus has a vertex position. The amniotic fluid volume appears normal and there is a single deepest pocket measurement of 7.0 cm. The fetus was active and demonstrated normal breathing movements. There was normal flexion and extension of the trunk and extremities. IMPRESSION: Normal biophysical profile score of 8 out of 8. Dictated by Danny Nguyen MD @ 08/20/2023 7:26:59 PM (Electronically Signed)
== END 2023-08-18 13:46 | disposition home or self-care (01) ==
LOC: US 13:45
PROVIDERS: Visit Provider Advanced Practice Midwife
DX: Z98.891 History of uterine scar from previous surgery (principal); Z87.51 Personal history of pre-term labor
CPT/HCPCS: 76819

== ENCOUNTER 2023-09-01 13:53 | Outpatient (CLI) | payer OTHER, SELFPAY ==
--- NOTE | 2023-09-01 14:00 | CRLHL7_ITS ---
For Patients: As a result of the Century Cures Act, medical imaging exams and procedure reports are released immediately into your electronic medical record. You may view this report before your referring provider. If you have questions, please contact your health care provider. INDICATION: History of uterine scar COMPARISON: 08/18/2023 TECHNIQUE: Real time hauser scale imaging of the fetus was performed. Without non-stress testing. FINDINGS: Sonographic imaging demonstrates a single living intrauterine gestation. Fetus demonstrates a regular cardiac rate of 141 beats per minute. Fetus has a vertex position. The amniotic fluid volume single deepest pocket measurement of 10.2 cm. JARAD 27.7 cm. The fetus was active and demonstrated normal breathing movements. There was normal flexion and extension of the trunk and extremities. IMPRESSION: Normal biophysical profile score of 8 out of 8. JARAD 27.7 cm. SDP 10.2 cm. Dictated by Danny Nguyen MD @ 09/02/2023 10:37:40 AM (Electronically Signed)
== END 2023-09-01 13:54 | disposition home or self-care (01) ==
LOC: US 13:54
PROVIDERS: Visit Provider Advanced Practice Midwife
DX: Z98.891 History of uterine scar from previous surgery (principal); Z87.51 Personal history of pre-term labor
CPT/HCPCS: 76819; 87081; 87653

== ENCOUNTER 2023-09-06 05:19 | Inpatient (IN) | payer OTHER, SELFPAY ==
[2023-09-06] VITALS (31 sets, daily range): BP systolic 102–116; BP diastolic 57–76; PULSE 89–114; RESP 16–18; TEMP 36.4–36.9; O2SAT 94–100; BMI 45.0
[2023-09-06] MEDS: LACTATED RINGERS 1000 ML 1,000 ML 1200 ML IV ×2 (05:46→06:37)
[2023-09-06 05:53] LABS: Basophils Absolute Auto 0.02 K/uL (0.00-0.30); Basophils Percent Auto 0.2 % (0.0-3.0); Eosinophils Percent Auto 1.1 % (0.0-7.0); Hematocrit 39.4 % (33.0-51.0); Hemoglobin* 13.1 gm/dL (12.0-16.0); Immature Granulocytes Pct Auto 1.1 %; Lymphocytes Absolute Auto 1.94 K/uL (0.90-2.90); Lymphocytes Percent Auto 21.7 % (20-44); Mean Corpuscular HGB Conc 33 gm/dL (32-36); Mean Corpuscular Hemoglobin 31 pg (26-34); Mean Corpuscular Volume 93 fL (80-100); Monocytes Percent Auto 11.6 % (0.0-11.0); Neutrophils Absolute Auto 5.73 K/uL (1.7-7.0); Neutrophils Percent Auto 64.3 % (42.0-72.0); Platelet Count* 226 K/uL (140-440); RDW Coefficient of Variation % 14.3 % (11.5-15.5); Red Blood Count 4.24 m/uL (4.00-5.20); White Blood Count* 8.93 K/uL (4.50-11.00)
[2023-09-06 05:57] LABS: Slide Review Reflex No
--- NOTE | 2023-09-06 07:16 | P.PCN_ITS ---
Procedure Note Time Seen by Provider: 08:32 Date Seen: 09/06/23 Date of procedure: 09/06/23 Will [facility] bill your pro fee for this procedure?: Yes Procedure: Preoperative diagnosis: 33-year-old 3 para 2001 at 36 and 6/7 weeks admitted for a 1. scheduled repeat low transverse section. 2. Undesired fertility 3. History of classical section Postoperative diagnosis: Same Procedure: Repeat low-transverse section. Bilateral Salpingectomy Anesthesia: Spinal Surgeon: Laura Michelle MD Assistant Account Manager: Kay Dhaliwal MD Quantitative blood loss: 334 mL IVF: 1400 mL UOP: 75 mL Drain(s): Steinberg to gravity Specimen: Right and left fallopian tubes to pathology Findings: A live male was delivered from the direct OA position at 8:01 a.m. Apgars were 8 at 1 min and 9 at 5 min respectively. weight: 8 lb 12 oz. Nuchal cord(s): Yes, 1 loose nuchal cord easily reduced prior to delivery of the shoulders. The placenta was delivered spontaneously and complete at 8:03 a.m. Amniotic fluid: Clear, large amount. Normal uterus, fallopian tubes and ovaries were noted. Other findings: The omentum was adherent to the anterior abdominal wall in the midline that was taken down with bipolar cautery. The bladder was adherent to the anterior lower uterine segment. Procedure: Mony was taken to the OR where spinal anesthetic was found be adequate. A Steinberg catheter was placed. The patient was then placed in the dorsal supine position with a leftward tilt. She was then prepped and draped in a normal sterile manner. A Pfannenstiel skin incision was made and carried through sharply to the underlying layer of fascia. Fascia was incised in the midline and this incision carried laterally with Jaimes scissors. The superior aspect of fascial incision was grasped with Barb clamps, tented up, and the rectus muscles dissected off with a combination of blunt and sharp dissection. The inferior aspect of the fascial incision was grasped with Barb clamps, tented up and again the rectus muscles dissected off with a combination of blunt and sharp dissection. The rectus muscles were in the midline. The peritoneum was entered bluntly. This opening was extended bluntly. An Ben-O self-retaining retractor was placed. A bladder flap was created using Metzenbaum scissors to release adhesions of the bladder flap to the anterior uterine wall and then the bladder flap was created digitally. Uterus was incised in a low transverse manner in the midline. This incision carried laterally with blunt pressure on the inferior and superior aspects of the uterine incision. The amniotic sac was ruptured. The infant's head and body was delivered atraumatically. The was shown to the patient and her support person, then handed to waiting pediatric and nursing staff. The placenta was delivered spontaneously. The uterus was cleared of clots and debris. The uterine incision was re-approximated with the uterus in vivo. The 1st layer using 0-Vicryl in a running, locked manner. The 2nd layer using 0-Monocryl in a running, vertical, imbricating layer. Additional sutures needed for hemostasis: No. Attention was then turned to performing the bilateral salpingectomy. The uterus was exteriorized to visualize fallopian tubes and ovaries.The right fallopian tube was identified, grasped with 2 Mahendra clamps and followed to the fimbriated end of the fallopian tube. The hand-held LigaSure dissecting forceps was used to remove the fallopian tube from the cornua and broad ligament by sequential pedicles. The pedicles were started at the fimbriated end of the tube and extended toward the cornua. The fallopian tube was amputated from the cornual a and sent to pathology. Hemostasis of the pedicles was obtained using bipolar cautery and a DeBakey forceps. The left fallopian tube was then identified, grasped with 2 Mahendra clamps and removed in the same manner as the right fallopian tube. All pedicles were visualized and hemostasis obtained using bipolar cautery with a DeBakey clamp. The uterine incision was reinspected and noted to be hemostatic. The Ben retractor was removed. The peritoneum was not reapproximated. The rectus muscles were not reapproximated. The rectus muscles were then closely inspected to verify hemostasis. Hemostasis was obtained with bipolar cautery. The fascia was then reapproximated using 0-Maxon loop in a running manner. The subcutaneous tissue was then irrigated with saline and hemostasis obtained with bipolar cautery. The subcutaneous tissue was reapproximated using 3-0 plain gut in a running manner. The skin was reapproximated using 4-0 Monocryl in a running subcuticular manner. Silver-containing dressing applied. The patient tolerated this procedure well. Sponge, lap and instrument counts were correct x2 active to the procedure. Patient was taken to the recovery area in stable condition. The patient received 3 g of IV Ancef prior to skin incision.
--- NOTE | 2023-09-06 07:16 | W.PM.H&PU ---
History & Physical Update History & Physical Update H&P Reviewed and patient assessed: No changes noted
[2023-09-06] MEDS: CEFAZOLIN 1 GM inj 3 GM IVP (07:28)
[2023-09-06] MEDS: LACTATED RINGERS 1000 ML 1,000 ML 125 ML IV ×2 (08:02→13:48)
[2023-09-06] MEDS: KETOROLAC 30 MG/ML inj IVP ×3 (08:38→20:14)
--- NOTE | 2023-09-06 09:06 | W.ANESCHARGE ---
Anesthesia Charges Start Date/Time Anesthesia Start Date: 09/06/23 Anesthesia Start Time: 07:19 Stop Date/Time Anesthesia Stop Date: 09/06/23 Anesthesia Stop Time: 09:03
--- NOTE | 2023-09-06 09:08 | P.NB_ITS ---
Nerve Block Nerve Block Time Seen by Provider: 08:50 Date Seen: 09/06/23 Type of block requested by surgeon for post-operative analgesia: TAP Side: bilateral Time out performed: Yes Verification of patient name: Yes Verification of date of : Yes Site marking: not applicable Name of person performing procedure: Ramses Continuous monitoring Was continuous monitoring of O2 sat, B/P, public affairs manager, recorded every 15 minutes?: Yes Procedure Checklist: sterile prep and needles Ultrasound guided. Images saved: Yes Medications given in 5ml increments after negative aspiration: Marcaine %: 0.25 mL: 30 Needle gauge: 20 and Exparel mL: 10 Patient tolerated procedure well: Yes Block Charges Block Charge (with Pro Fee): TAP Bilateral Use of Ultrasound Machine for Block: Yes- US Guidance/pain block
--- NOTE | 2023-09-06 11:44 | W.ANESCHARGE ---
Anesthesia Charges Start Date/Time Anesthesia Start Date: 09/06/23 Anesthesia Start Time: 07:19 Stop Date/Time Anesthesia Stop Date: 09/06/23 Anesthesia Stop Time: 09:03
[2023-09-06] MEDS: ENOXAPARIN 40 MG/0.4 ML INJ SUBCUT (20:14)
[2023-09-07] VITALS (9 sets, daily range): BP systolic 108–119; BP diastolic 75–87; PULSE 96–100; RESP 18; TEMP 36.4–36.8; O2SAT 95–99
[2023-09-07] MEDS: KETOROLAC 30 MG/ML inj IVP ×3 (02:35→14:57)
--- NOTE | 2023-09-07 11:16 | P.OBPN_ITS ---
OB - PN:Subj Subjective Date Seen: 09/07/23 Narrative: Mony is a 33 y.o. who was admitted to [facility] & D for scheduled repeat with planned bilateral tubal ligation 09/06/2023. ?She had an uncomplicated with tubal.?The patient feels well. ?The pain is well controlled with current medications, toradol. ?She has no new complaints. ?She is exclusively pumping colostrum while in the hospital and planning formula feeding at home.? the patient has done well.? Vitals have been stable.? She has remained afebrile.? Has a good appetite, is tolerating a general diet. ?She is voiding without difficulty.? She is passing gas and has had a bowel movement.? She is ambulating and denies any dizziness.? Has Small amount of rubra lochia. ? See problem list below. # history of HELLP syndrome 1st , delivery at 30 weeks, severe IUGR, critical Doppler Aspirin 81mg Delivered by classical (unable to do low transverse incision secondary to body habitus) Baseline pre E labs 05/31/2023: Normal labs with the exception of mild AST elevation, 54. Pr/cr ratio:0.0 24 hour urine for protein: <5 Repeat preeclampsia labs 07/14/2023: Normal labs except AST 39. Urine P/C ratio: 0.03. #Polyhydramnios-Mild JARAD 27.7cm on 09/01/23- new finding, BPP 8/8 # perinatology consult 05/04/[address]23 [facility] Dr. Blanca Mcgrath Level 2 ultrasound as below. Planning baseline pre E labs at 28 weeks. Prior classical Return visit for growth and placenta check 30-32 weeks. Desires growth ultrasound here: Growth+BPP scheduled 08/04/23 Patient should be seen weekly starting at 32 weeks for blood pressure checks ( Testing Form complete) # Previous classical Repeat at 36 0/7-37 0/7 weeks Scheduled RLTCS w/ B Salpingectomy on 09/06/2023 at 36w6d Federal consent signed: 06/28/23 # depression, anxiety, ADD. History of PTSD from her 1st delivery She discontinued her stimulant with positive test. She feels she is managing well without it. Managed by psychiatry. Bupropion XL 150 mg, venlafaxine 37.5 mg. PHQ-9 13 and briana 7 8, 05/31/2023. PHQ-9 = 16, BRIANA 7 = 14 on 06/27. 07/28/23 at 31w1d: PHQ 15, BRIANA 10: declined modification in medication doses Recommend appointment with her therapist and psychiatrist for medication adjustment # obesity Hemoglobin A1c 4.8% # Pap LSIL 06/30/18. FAWN 2 on cervical biopsy 06/2018. * Pap 07/12/2022 NIL, HPV negative #Level 2 anatomy scan incomplete: Suboptimal view of aortic arch and three- vessel trachea view. OB - PN: Obj Exam Physical Exam: Vital signs: Temp Pulse Resp BP Pulse Ox O2 Del Method 97.9 F 97 18 119/87 96 Room Air 09/07/23 08:19 09/07/23 08:19 09/07/23 08:19 09/07/23 08:19 09/07/23 08:19 09/07/23 08:19 Narrative: GENERAL APPEARANCE:? normal affect, alert, no distress MOOD:? appropriate CHEST:? clear to auscultation HEART:? regular rate and rhythm ABDOMEN:? soft, non-tender the uterine fundus is 1 cm below Umbilicus, Midline and is appropriate for the stage of recovery. EXTREMITIES:? normal and minimal edema Incision: Surgical dressing intact with no evidence of discharge Urinary Catheter Management: Urethral: Cath placed during this visit: yes, but has since been removed by the nurse Reason for continuing: surgical procedure Insertion date: 09/06/23 Insertion time: 07:35 Removal date: 09/06/23 Removal time: 16:30 OB - PN: Obj Data Labs Labs: Laboratory Results - last 24 hr 09/07/23 06:05 Hgb 11.0 L OB - PN: A/P Delivery Assessment and Plan (1) Encounter for care of lactating mother: Status: Acute (2) delivery delivered: Status: Acute Plan Discharge home with baby planned as early as 09/08/2023 if all remains stable.? Follow up in 2 weeks and 6 weeks and incision check as needed.? Hgb 11.0. ? Routine PP care and Support? Plan day: 1 Plan: routine care
[2023-09-07 18:04] LABS: Rapid Plasma Reagin (RPR) Non Reactive (Non Reactive)
[2023-09-07] MEDS: ENOXAPARIN 40 MG/0.4 ML INJ SUBCUT (20:59)
[2023-09-08] MEDS: ACETAMINOPHEN 500 MG TABLET 1000 MG PO ×3 (02:21→21:02)
[2023-09-08 02:26] VITALS: BP 117/81; PULSE 96; RESP 16; TEMP 36.7; O2SAT 97
[2023-09-08 07:48] VITALS: BP 120/82; PULSE 92; RESP 16; TEMP 36.6; O2SAT 96
[2023-09-08] MEDS: IBUPROFEN 600 MG TABLET PO ×2 (08:00→17:27)
[2023-09-08] MEDS: DOCUSATE SODIUM 100 MG CAPSULE PO (08:01)
[2023-09-08 15:47] VITALS: BP 118/78; PULSE 88; RESP 18; TEMP 36.6; O2SAT 99
--- NOTE | 2023-09-08 16:27 | PM.OBPNVD1 ---
OB - PN:Subj Subjective Time Seen by Provider: 08:30 Date Seen: 09/08/23 Narrative: Mony is a 33 y.o. who was admitted to L & D for repeat C/S and tubal ligation.? She had an uncomplicated repeat .? ? The patient feels well.? The pain is well controlled with current medications.? She has no new complaints.? She is bottle feeding and reports things are going well.? the patient has done well.? Vitals have been stable.? She has remained afebrile.? Has a good appetite, is tolerating a general diet.? She is voiding without difficulty.? She is passing gas and has had a bowel movement.? She is ambulating and denies any dizziness.? Has Small amount of rubra lochia.? OB - PN: Obj Exam Physical Exam: Vital signs: Temp Pulse Resp BP Pulse Ox O2 Del Method 98 F 88 18 118/78 99 Room Air 09/08/23 15:47 09/08/23 15:47 09/08/23 15:47 09/08/23 15:47 09/08/23 15:47 09/08/23 15:47 Narrative: GENERAL APPEARANCE:? normal affect, alert, no distress MOOD:? appropriate CHEST:? clear to auscultation HEART:? regular rate and rhythm ABDOMEN:? soft, non-tender the uterine fundus is firm At Umbilicus, Midline and is appropriate for the stage of recovery. EXTREMITIES:? normal and trace edema Incision: Silver Nitrate dressing intact. Urinary Catheter Management: Urethral: Cath placed during this visit: yes, but has since been removed by the nurse Reason for continuing: surgical procedure Insertion date: 09/06/23 Insertion time: 07:35 Removal date: 09/06/23 Removal time: 16:30 OB - PN: Obj Data Labs Labs: Laboratory Results - last 24 hr 09/06/23 05:45 RPR Screen Non Reactive OB - PN: A/P Delivery Assessment and Plan (1) Encounter for care of lactating mother: Status: Acute (2) delivery delivered: Status: Acute Plan day: 2 Plan: routine care Comments: Assessment/Plan?G 3 P 3 status post uncomplicated repeat .? ?? 1.? Continue route PP cares? 2.?Bottle feeding 3.? Anticipate discharge home tomorrow ? ?
--- NOTE | 2023-09-08 18:01 | PC.NURSE ---
Nursing Care Hours: [id number] Pt this shift pleasant, independent ambulation. Engaged with . Pain controlled per eMAR. Trialed ice pack without relief. Denies SOB, chest pain, or headache. Bleeding is reported to be light pink. No BM, PRN stool softener given. VSS.
[2023-09-08] MEDS: ENOXAPARIN 40 MG/0.4 ML INJ SUBCUT (21:02)
[2023-09-08 23:00] VITALS: BP 126/85; PULSE 94; RESP 18; TEMP 36.6; O2SAT 98
[2023-09-09] MEDS: IBUPROFEN 600 MG TABLET PO ×2 (02:00→10:36)
[2023-09-09] MEDS: ACETAMINOPHEN 500 MG TABLET 1000 MG PO (06:40)
[2023-09-09] MEDS: DOCUSATE SODIUM 100 MG CAPSULE PO (06:42)
[2023-09-09 07:35] VITALS: BP 120/83; PULSE 89; RESP 18; TEMP 36.6; O2SAT 97
--- NOTE | 2023-09-09 08:33 | PM.OBDSVD1 ---
DS: Providers Provider Date Seen: 09/09/23 Date of admission: 09/06/23 05:19 Primary care physician: Not a Local Provider Admitting Clinician: Laura Michelle MD Attending Physician on discharge: Laquita Suresh APRN, CNM DS: Diagnosis Discharge Diagnosis (1) Encounter for care of lactating mother: Status: Acute (2) delivery delivered: Status: Acute (3) ADD (attention deficit disorder): Status: Acute (4) Anxiety and depression: Status: Acute (5) PTSD (post-traumatic stress disorder): Status: Acute Exam Narrative: Exam Narrative: GENERAL APPEARANCE:? normal affect, alert, no distress MOOD:? appropriate CHEST:? clear to auscultation HEART:? regular rate and rhythm ABDOMEN:? soft, non-tender the uterine fundus is At Umbilicus, Midline and is appropriate for the stage of recovery. EXTREMITIES:? normal and no edema INCISION: Silver nitrate dressing in place; clean, dry, and intact Const: Vital Signs, click to edit/add: Vital Signs - 24 hr 09/08/23 15:47 09/08/23 23:00 09/09/23 07:35 Temperature 98 F 97.8 F 97.8 F Pulse Rate [Right Blood Pressure Cuf f] 88 94 89 Respiratory Rate 18 18 18 Blood Pressure [Ri ght Arm] 118/78 126/85 120/83 Pulse Oximetry 99 98 97 Oxygen Delivery Me thod Room Air Room Air Room Air Documenting provider has reviewed patient's vital signs: yes OB - DS: Summary Hospital Course Hospital Course: Mony is a 33 y.o. G 3 P 3 who was admitted to L & D for repeat section. ?She had a section that was uncomplicated. The patient feels well. ?The pain is well controlled with current medications. ?She has no new complaints. ?She is breast feeding and reports things are going well. the patient has done well.? Vitals have been stable.? She has remained afebrile.? Has a good appetite, is tolerating a general diet. ?She is voiding without difficulty.? She is passing gas and has not had a bowel movement.? She is ambulating and denies any dizziness.? Has small amount of rubra lochia. She had a bilateral tubal for prevention. Problems: none plan: Discharge home with baby. Follow up in 2 weeks and 6 weeks. , may see if needed Hgb 11.0. Peripartum Data Infant delivery method: Repeat Section (w/ Tubal) Procedures: Procedures Operation Date: 09/06/23 07:15 Actual Procedure Side Surgeon p Repeat Low Transverse Section, Bilateral Salpingectomy Bilateral Laura Michelle MD Infant Gender: Male Discharge Plan: Home Status at Discharge Functional status at discharge: independent ambulation Overall status at discharge: patient is progressing back to baseline Time Spent with Patient Time attestation: Total time spent providing and/or coordinating discharge services: Time spent: Less than 30 minutes Discharge Plan Discharge Disposition: Home, Self-Care Date of Admission: 09/06/23 05:19 Attending Provider on Discharge: Laquita Suresh Primary Care Provider: Provider,Not a Local Condition: Stable Anticipated Discharge Date/Time: 09/09/23 12:00 Discharge Medications: New docusate sodium 100 mg Capsule 100 mg PO BID PRNQty: 90 0RF ibuprofen 600 mg Tablet 600 mg PO Q6H PRN (Reason: Pain) Qty: 60 0RF oxycodone 5 mg Tablet 5 - 10 mg PO Q4H PRN (Reason: Pain) Qty: 15 0RF Continued venlafaxine 37.5 mg capsule,extended release 24hr 37.5 mg PO QDAY DHA 200 mg capsule 200 mg PO DAILY acetaminophen [Tylenol Extra Strength] 500 mg tablet 1,000 mg PO Q6H PRN docusate sodium [Dulcolax Stool Softener (dss)] 100 mg capsule 100 mg PO QDAY ferrous sulfate 325 mg (65 mg iron) tablet 325 mg PO QDAY bupropion HCl 150 mg tablet extended release 24 hr 150 mg PO DAILY Discontinued aspirin 81 mg tablet,chewable 81 mg PO QDAY Discharge Orders: Discharge Order (Routine); Ordered 09/09/23 Ordered By: Laquita Suresh Patient Education: OB Over the Counter Medication Information, OB /Bottle Feeding Additional Instructions: Discharge instructions were reviewed with the patient including signs and symptoms of infection and home going medications Lifting Restrictions: 20 pounds for 6 weeks No not submerge incision under water X 2 weeks? Nothing vaginally for 6 weeks: no tampons or intercourse Do not drive while taking narcotic pain medication(s) Off Work or School for 8 weeks 1-week incision check with silver nitrate dressing removal 2-week visit: incision check, discuss infant feeding concerns, review control options and screen for anxiety/depression. 6-week visit for an annual exam. consultation services are available to all mothers and babies for the first year after delivery.? To make an appointment, please call [phone]. Activity Level: Activity as Tolerated Discharge Diet: Regular Follow Up Appointments: [facility] [Provider Group] Forms: MyHealth Info Instructions
== END 2023-09-09 11:05 | disposition home or self-care (01) | DRG 540 ==
PROVIDERS: Admitting Provider Obstetrics & Gynecology; Visit Provider Obstetrics & Gynecology
PROC: 10D00Z1 Extraction of Products of Conception, Low, Open Approach (ICD-10-PCS; CPT 59514; principal; 2023-09-06 07:15)
DX: O34.211 Maternal care for low transverse scar from previous cesarean delivery (principal); G89.18 Other acute postprocedural pain; Z30.2 Encounter for sterilization; Z3A.36 36 weeks gestation of pregnancy; Z37.0 Single live birth; O99.344 Other mental disorders complicating childbirth; F41.9 Anxiety disorder, unspecified; F32.A Depression, unspecified; F43.10 Post-traumatic stress disorder, unspecified; F98.8 Other specified behavioral and emotional disorders with onset usually occurring in childhood and adolescence; O40.3XX0 Polyhydramnios, third trimester, not applicable or unspecified; O99.214 Obesity complicating childbirth
CPT/HCPCS: 01961; 36415; 64488; 76942; 85018; 85025; 86592; 86850; 86900; 86901; 88302; A9270; C9290; J0665; J0690; J1100; J1650; J1885; J2274; J2371; J2405; J2590; J2765; J3010; J7120

== ENCOUNTER 2023-10-19 13:40 | Outpatient (CLI) | payer OTHER, SELFPAY | END 2023-10-19 13:41 | disposition home or self-care (01) | LOC: NFLDREF 11-04 12:22 | PROVIDERS: Visit Provider Registered Nurse | DX: Z12.4 Encounter for screening for malignant neoplasm of cervix (principal) | CPT/HCPCS: 87624 ==